=== PATIENT | male | born 1955 | race Caucasian/White ===

== ENCOUNTER 2018-09-26 09:58 | Emergency (ER) | payer OTHER ==
[~2018-09-26] VITALS: Ht 160 cm; Wt 71.7 kg
[2018-09-26 10:12] VITALS: Ht 160 cm; Wt 71.7 kg
[2018-09-26 14:29] LABS: microscopic required? YES; urine erythrocyte 1+ (NEGATIVE)
[2018-09-26 16:35] VITALS: BP 138/89
== END 2018-09-26 16:35 | disposition home or self-care (01) ==
LOC: ED 09:58
PROVIDERS: Specialist
DX: R33.9 Retention of urine, unspecified (principal); R10.30 Lower abdominal pain, unspecified; Z98.890 Other specified postprocedural states
CPT/HCPCS: J0696

== ENCOUNTER 2019-11-05 11:10 | Emergency (ER) | payer OTHER ==
[~2019-11-05] VITALS: Ht 160 cm; Wt 72.6 kg
[2019-11-05 11:16] VITALS: Ht 160 cm; Wt 72.6 kg
[2019-11-05 15:27] VITALS: BP 132/76
== END 2019-11-05 15:27 | disposition home or self-care (01) ==
LOC: ED 11:10
DX: S00.03XA Contusion of scalp, initial encounter (principal); S50.311A Abrasion of right elbow, initial encounter; S80.212A Abrasion, left knee, initial encounter; R07.89 Other chest pain; M54.5 Low back pain; Z98.890 Other specified postprocedural states; W11.XXXA Fall on and from ladder, initial encounter; Y93.89 Activity, other specified; Y92.89 Other specified places as the place of occurrence of the external cause; Y99.8 Other external cause status